=== PATIENT | male | born 1950 | race Caucasian/White ===

== ENCOUNTER 2020-04-13 10:24 | Outpatient (CLI) | payer MEDICARE ==
[2020-04-13] MEDS ORDERED: LIDOcaine 2% 5ml jelly ONE (10:55)
== END 2020-04-13 11:30 | disposition home or self-care (01) ==
LOC: WOUND CARE 10:24
PROVIDERS: ATTEND Nurse Practitioner
DX: I83.013 Varicose veins of right lower extremity with ulcer of ankle (principal); L97.312 Non-pressure chronic ulcer of right ankle with fat layer exposed; I87.2 Venous insufficiency (chronic) (peripheral); I10 Essential (primary) hypertension; F10.129 Alcohol abuse with intoxication, unspecified; Z87.891 Personal history of nicotine dependence
CPT/HCPCS: 73590; 73630; 87070; 87075; 87077; 87102; 87186; 97597; 97598

== ENCOUNTER 2020-04-20 09:25 | Day surgery (SDC) | payer MEDICARE ==
[2020-04-20] MEDS ORDERED: LIDOcaine 2% 5ml jelly ONE (09:35)
== END 2020-04-20 10:30 | disposition home or self-care (01) ==
LOC: WOUND CARE 09:25
PROVIDERS: ATTEND Nurse Practitioner
DX: I83.013 Varicose veins of right lower extremity with ulcer of ankle (principal); L97.312 Non-pressure chronic ulcer of right ankle with fat layer exposed; I87.2 Venous insufficiency (chronic) (peripheral); I10 Essential (primary) hypertension; F10.129 Alcohol abuse with intoxication, unspecified; Z87.891 Personal history of nicotine dependence
CPT/HCPCS: 11042

== ENCOUNTER → 2020-04-27 | Outpatient (CLI) | payer MEDICARE ==
[~2020-04-27] MED LIST: LIDOcaine 2% 5ml jelly ONE
== END | disposition home or self-care (01) ==
LOC: WOUND CARE 08:56
PROVIDERS: ATTEND Nurse Practitioner
DX: I83.013 Varicose veins of right lower extremity with ulcer of ankle (principal); L97.312 Non-pressure chronic ulcer of right ankle with fat layer exposed; I87.2 Venous insufficiency (chronic) (peripheral); I10 Essential (primary) hypertension; F10.129 Alcohol abuse with intoxication, unspecified; Z87.891 Personal history of nicotine dependence; Z85.820 Personal history of malignant melanoma of skin
CPT/HCPCS: 11042; 93970

== ENCOUNTER → 2020-05-04 | Outpatient (CLI) | payer MEDICARE | END | disposition home or self-care (01) | LOC: EDSTATUS 08:40 → WOUND CARE 09:34 | PROVIDERS: ATTEND Nurse Practitioner | DX: I83.013 Varicose veins of right lower extremity with ulcer of ankle (principal); L97.312 Non-pressure chronic ulcer of right ankle with fat layer exposed; I87.2 Venous insufficiency (chronic) (peripheral); I10 Essential (primary) hypertension; F10.129 Alcohol abuse with intoxication, unspecified; Z87.891 Personal history of nicotine dependence; Z85.820 Personal history of malignant melanoma of skin | CPT/HCPCS: 11042 ==

== ENCOUNTER 2020-05-11 09:18 | Outpatient (CLI) | payer MEDICARE ==
[2020-05-11] MEDS ORDERED: LIDOcaine 2% 5ml jelly ONE (09:39)
== END 2020-05-11 23:59 | disposition home or self-care (01) ==
LOC: WOUND CARE 09:18
PROVIDERS: ATTEND Nurse Practitioner
DX: I83.013 Varicose veins of right lower extremity with ulcer of ankle (principal); L97.312 Non-pressure chronic ulcer of right ankle with fat layer exposed; I87.2 Venous insufficiency (chronic) (peripheral); I10 Essential (primary) hypertension; F10.129 Alcohol abuse with intoxication, unspecified; Z87.891 Personal history of nicotine dependence; Z85.820 Personal history of malignant melanoma of skin
CPT/HCPCS: G0463

== ENCOUNTER → 2020-08-31 | Outpatient (CLI) | payer MEDICARE | END | disposition home or self-care (01) | LOC: WOUND CARE 10:50 → EDSTATUS 11:00 | PROVIDERS: ATTEND Nurse Practitioner | DX: I83.013 Varicose veins of right lower extremity with ulcer of ankle (principal); L97.312 Non-pressure chronic ulcer of right ankle with fat layer exposed; S90.512D Abrasion, left ankle, subsequent encounter; I87.2 Venous insufficiency (chronic) (peripheral); I10 Essential (primary) hypertension; F10.129 Alcohol abuse with intoxication, unspecified; Z87.891 Personal history of nicotine dependence; Z85.820 Personal history of malignant melanoma of skin; X58.XXXD Exposure to other specified factors, subsequent encounter | CPT/HCPCS: 11042; 11045 ==

== ENCOUNTER 2023-11-30 10:39 | Emergency (ER) | payer MEDICARE ==
[~2023-11-30] VITALS: Ht 177.8 cm; Wt 90.9 kg
[2023-11-30 10:41] VITALS: TEMP 97.5
[2023-11-30 11:45] LABS: BASOPHILS % (AUTO) 0.2 % (0-1); EOSINOPHILS % (AUTO) 0.3 % (0-6); HEMATOCRIT 40.2 % (42.0-52.0); HEMOGLOBIN 13.3 g/dl (14.0-17.9); LYMPHOCYTES # (AUTO) 1.1 X10'3 (1.1-4.8); LYMPHOCYTES % (AUTO) 9.5 % (21-51); MEAN CORPUSCULAR HEMOGLOBIN 34.7 PG (27.0-31.0); MEAN CORPUSCULAR HGB CONC 33.1 g/dL (33.0-36.5); MEAN CORPUSCULAR VOLUME 104.8 FL (78-98); MEAN PLATELET VOLUME 7.4 FL (7.4-10.4); MONOCYTES % (AUTO) 8.7 % (2-12); NEUTROPHILS # (AUTO) 9.4 X10'3 (1.8-7.7); NEUTROPHILS % (AUTO) 81.3 % (42-75); PLATELET COUNT 137 X10'3 (140-440); RED BLOOD COUNT 3.84 X10'6 (4.70-6.10); RED CELL DISTRIBUTION WIDTH 14.1 % (11.5-14.5); WHITE BLOOD COUNT 11.6 X10'3 (4.5-11.0)
[2023-11-30 12:02] VITALS: BP 141/61; PULSE 52; RESP 16; O2SAT 98
== END 2023-11-30 12:04 | disposition home or self-care (01) ==
LOC: ER 10:39
DX: L98.499 Non-pressure chronic ulcer of skin of other sites with unspecified severity (principal); F10.90 Alcohol use, unspecified, uncomplicated
CPT/HCPCS: 36415; 85025; 99283; A6223; A6258; A6446; A6449